=== PATIENT | male | born 1955 | race Caucasian/White ===

== ENCOUNTER 2025-01-14 15:21 | Outpatient (AMB) | payer MEDICARE, OTHER, SELFPAY ==
--- NOTE | 2025-01-14 15:31 | AM.OFFWIN_ITS ---
Intake Vital Signs 01/14/25 15:34 Height 6 ft 3.5 in Weight 295 lb BMI 36.4 BP 134/78 Blood Pressure Location Lt brachial Position Sitting Respiration 17 Pulse 76 Pulse Source Pulse Oximeter Temp 97.9 F Temp Source Oral Pulse Oximetry (%) 96 Oxygen Delivery Method Room Air Intake Visit Reasons: EP Weakness, dizziness Intake Note: Pt is here today for a walk in visit. Pt c/o weakness and out of balance. Allergies No Known Allergies Allergy (Unverified 01/14/25 15:32) HPI HPI Comments History of Present Illness Details History of Present Illness - The patient is a 69-year-old male pres enting with weakness and lightheadedness. - The weakness began a few days ago and has persisted, though it has not been debilitating. - He occasionally experiences lightheade dness and some dizziness. - He has a history of anxiety, managed w ith lorazepam. - He was told that if he had chest pains to take his lorazepam which resolves the pain. - The patient has migraines treated with verapamil. - No history of anemia or dietary change s reported. - He denies recent chest pain, body ache s, or cold symptoms. - Blood work is planned to evaluate thyr oid function and other potential issues from his PCP. - He denies bruising or melena or rectal bleeding. Physical Exam General: Cooperative, healthy appearing, comfortable, no acute distress and well developed Orientation: Patient oriented x3 Limitations: No limitations Head: Normal to inspection Ears: Hearing grossly normal bilaterally Nose: Normal external nose present Face and sinus: Normal facial exam Eyes: Appearance normal, both eyes and all related structures. PERRLA, EOMI. No nystagmus noted. Neck: Normal visual inspection and Yes full ROM. No carotid bruits noted. No thyromegaly. Respiratory: Normal respiratory effort and able to speak in complete sentences. Clear to auscultation bilaterally. No w/r/r noted. Cardiovascular: Regular rate and rhythm. Normal S1 and S2. No m/r/g noted. GI: Normal to inspection. Soft to palpation and nontender, no guarding or rebound tenderness. Skin: No rashes or lesions noted. Neuro: Patient oriented x3. CN II-XII intact. Extremities: Normal to inspection. No edema noted. No calf tenderness noted. Patient was informed and verbally consented to the use of an ambient scribe for clinic note documentation during this visit Review of Systems Const All systems reviewed & are unremarkable except as noted in HPI and below Physical Exam Vital Signs: Last Vital Signs Temp 97.9 F 01/14/25 15:34 Pulse 76 01/14/25 15:34 Resp 17 01/14/25 15:34 BP 134/78 01/14/25 15:34 Pulse Ox 96 01/14/25 15:34 Oxygen Delivery Method Room Air 01/14/25 15:34 BMI result Body Mass Index 36.4 Office Procedures EKG 69501-[id number], Complete Results AMB Hemoglobin A1c AMB Hemoglobin A1c 5.9 % Last Edit by Natalia Echevarria CMA on 01/14/25 16:35 Results Reviewed Results Reviewed: Laboratory Last Values Hgb A1c (Clinic) 5.9 % (4.0-6.0) 01/14/25 16:32 Assessment & Plan Assessment & Plan (1) Weakness with dizziness: Code(s): R53.1 - Weakness; R42 - Dizziness and giddiness Plan Most likely hypothyroidism vs hypoglycemia vs electrolyte abnormality vs Anxiety vs cardiac? EKG in the office with no ST elevations noted HbA1c was 5.9 plan - Continue lorazepam as needed for anxiety management. - Re-evaluate if symptoms do not improve. - Perform blood tests as ordered by his PCP - take regular medications - Advised him to go to the ER if he continues to be weak, has chest pain, syncope, etc Orders: Orders AMB Hemoglobin A1c Today Z13.9 - Encounter for screening, unspecified AMB EKG-In Office Today Z13.6 - Encounter for screening for cardiovascular disorders Coding Level of Care Code Est Pt Level 4 (93930) Diagnoses Weakness with dizziness R53.1; R42 CPT Codes EKG - CPT: 38442-Ohnuzkzoafsellqzl, Complete ([id number])
[2025-01-14 15:34] VITALS: BP 134/78; PULSE 76; RESP 17; TEMP 36.6; O2SAT 96; BMI 36.4
--- OUTSIDE RECORDS SUMMARY | 2025-01-14 18:15 | XMS_ITS | Clinical Summary ---
Author Organization [facility] Address [address] [facility] [address] [place] [id number] Phone Care Team Providers Care Brake Operator Name Role Phone Geraldo To MD Primary Care Provider + Allergies No known active allergies Medications No known medications Active Problems No known active problems Social History Tobacco Use Types Packs/Day Years Used Date Smoking Tobacco: Never Assessed Education Answer Date Recorded Are you interested in more education? Not on ariel e 07/07/2022 Are you concerned about learning? Not on file 07/07/2022 No 07/07/2022 No 07/07/2022 Digital Access Answer Date Recorded No 08/05/2022 No 08/05/2022 Reliable internet access at home? Not on file 08/05/2022 Device with a working camera? Not on file Sex and Gender Information Value Date Recorded Sex Assigned at Not on file Legal Sex Male 4:14 PM EDT Gender Identity Not on file Sexual Orientation Not on file Last Filed Vital Signs Vital Sign Reading Time Taken Comments Blood Pressure - - Pulse - - Temperature - - Respiratory Rate - - Oxygen Saturation - - Inhaled Oxygen Concentration - - Weight 133.8 kg (295 lb) 01/22/2022 10:33 AM EST Height 190.5 cm (6' 3 ) 01/22/2022 10:33 AM EST Body Mass Index 36.87 01/22/2022 10:33 AM EST Plan of Treatment Health Maintenance Due Date Last Done Comments LIPID PANEL 1956 DEPRESSION SCREENING 1968 SMOKING Hx and SMOKELESS TOBACCO SCREENING 1969 HEPATITIS C SCREENING 1974 SCREENING FOR DIABETES 1991 COLOGUARD 2001 COLONOSCOPY 2001 COLORECTAL CANCER SCREENING 2001 FIT TEST 2001 FOBT 2001 SIGMOIDOSCOPY 2001 VIRTUAL COLONOSCOPY 2001 PNEUMOCOCCAL VACCINES (50+ years) (1 of 1 - PCV) 2006 ZOSTER VACCINES (1 of 2) 2006 INFLUENZA VACCINE (#1) 2024 , 01/02/2020, 11/29/2018, Additional history exists COVID-19 VACCINE (2 - season) 2024 01/14/2021 Adult Td,Tdap Booster 01/05/2029 01/05/2019, 007 RSV VACCINE (1 - 1-dose 75+ series) 2031 HEPATITIS A VACCINES Aged Out No long er eligible based on patient's age to complete this topic HIB VACCINES Aged Out No longer eligi ble based on patient's age to complete this topic MENINGOCOCCAL VACCINES (ACWY) Aged Out No longer eligible based on patient's age to complete this topic MENINGOCOCCAL VACCINES (B) Aged Out N o longer eligible based on patient's age to complete this topic Medical Devices Not on file [place] [address] [place] [address] [place], [place] [address] [place] [address] [place] [place] [address] [place] [address] Care Teams Brake Operator Relationship Specialty Start Date End Date Geraldo To MD [address] [place] [id number] PCP - General Internal Medicine 09/20/20 Additional Source Comments The information contained in this document represents components of the legal health record. It is not the complete legal health record.[facility]
== END 2025-01-14 16:50 | disposition home or self-care (01) ==
PROVIDERS: PCP Internal Medicine; Visit Provider Physician Assistant Medical
DX: R53.1 Weakness (principal); R42 Dizziness and giddiness; Z13.9 Encounter for screening, unspecified

== ENCOUNTER → 2025-01-14 15:21 | Outpatient (BNVA) | payer OTHER, SELFPAY | PROVIDERS: PCP Internal Medicine; Visit Provider Physician Assistant Medical | DX: R53.1 Weakness (principal); R42 Dizziness and giddiness; F41.9 Anxiety disorder, unspecified; G43.909 Migraine, unspecified, not intractable, without status migrainosus; Z13.6 Encounter for screening for cardiovascular disorders; Z13.1 Encounter for screening for diabetes mellitus; Z79.899 Other long term (current) drug therapy | CPT/HCPCS: 83036; 93005; 99212 ==

== ENCOUNTER 2025-01-16 18:35 | Emergency (ER) | payer OTHER, SELFPAY ==
--- NOTE | ~2025-01-16 | XR_ITS ---
CLINICAL HISTORY: weakness 2 view chest x-ray Comparison: None provided Findings: No consolidation or effusion. Normal size heart. No acute fracture. IMPRESSION: 1. No acute findings. This document has been electronically signed by: Anu Jackson MD on 01/16/2025 19:52:25
--- NOTE | ~2025-01-16 | US_ITS ---
CLINICAL HISTORY: leg pain, swelling Venous duplex ultrasound right lower extremity Comparison: None provided Findings: The visualized deep veins are fully compressible with normal Doppler color flow and spectral tracings. Varicose veins of the left calf. Right groin lymph node measuring 0.6 cm short axis. IMPRESSION: 1. Negative for right lower extremity deep vein thrombosis. This document has been electronically signed by: Anu Jackson MD on 01/16/2025 19:55:12
--- NOTE | 2025-01-16 18:44 | ED_ITS ---
HPI - General Adult General Chief complaint: Extremity Problem Stated complaint: lwr right leg swollen Time Seen by Provider: 01/16/25 22:29 Source: patient Mode of arrival: ambulatory Limitations: no limitations History of Present Illness ED Provider: Brenden FLOR HPI narrative: The patient is a 69-year-old male presenting to the ED reporting last week he was experiencing generalized fatigue described as generalized malaise with bilateral lower extremity weakness. The patient denies any associated fever/chills, nausea, vomiting, chest pain, shortness of breath, fall, unilateral symptoms, headache, recent sick contacts, or recent trauma. The patient reports he was seen at urgent care for his symptoms, reports EKG and laboratory evaluation was reassuring. Patient reports he was recently seen by his PCP and scheduled for repeat labs this coming Saturday. Urgent Care advised him to monitor his symptoms and complete PCP labs on Saturday. Patient reports a history of anxiety due to caring for a special needs child, for which he is prescribed Ativan. The patient reports he wondered if his symptoms related to anxiety, reports after taking his Ativan the symptoms appeared to mildly improved. The patient reports tonight however he noted asymmetric swelling of the right lower extremity compared to the left, without associated pain or tenderness. Patient presenting to the ED for evaluation of possible blood clot. Related Data Home Medications ?Medication ?Instructions ?Recorded ?Confirmed allopurinol 300 mg tablet 300 mg PO DAILY 01/14/25 aspirin 81 mg tablet 81 mg PO DAILY 01/14/25 atorvastatin 10 mg tablet 10 mg PO BEDTIME 01/14/25 citalopram 10 mg tablet 20 mg PO QAM 01/14/25 levothyroxine 150 mcg tablet 150 mcg PO DAILY 01/14/25 lorazepam 0.5 mg tablet 0.5 mg PO Q6H PRN anxiety verapamil 120 mg tablet,extended 40 mg PO DAILY release Allergies Allergy/AdvReac Type Severity Reaction Status Date / Time No Known Allergies Allergy Verified 01/16/25 18:48 Review of Systems 2 Review of Systems: Yes all other systems are reviewed and are negative [facility] Social History Social History Unable to assess alcohol history related to: Unknown Smoked in Last 30 Days: No Use of substances other than those prescribed or required for medical reasons: No Any prior treatment program specific to substance use: No Advance Directives: No Advance Directives Information Provided: Yes Physical Exam ED Vital Signs: Vital Signs - 24 hr 01/16/25 18:45 01/16/25 22:07 01/16/25 23:44 Temperature 98.0 F 98.4 F Pulse Rate 76 74 74 Respiratory Rate 18 18 18 Blood Pressure 194/82 H 149/67 H 149/67 H Pulse Oximetry 96 95 95 Oxygen Delivery Method Room Air Room Air Room Air BMI result Body Mass Index 36.6 CONSTITUTIONAL: The patient appears non-toxic, well nourished and in no acute distress. Vital signs as documented. HEAD: Atraumatic, normocephalic. EYES: EOMs grossly intact, pupils equal, conjunctiva clear, no exudate. ENT: Nares patent, no discharge. Airway patent, no audible stridor, visible mucosa is pink and moist without noted lesions. NECK: Trachea is midline, no obvious masses or gross abnormalities. CHEST: Symmetric movement, normal appearance. LUNGS: LS present and CTAB, no w/r/r. Non-labored work of breathing. CARDIAC: Regular Rhythm, S1/S2 appreciated, no murmurs, rubs or gallops. ABDOMEN: Abdomen soft and non-tender x4 quadrants, no palpable masses or organomegaly. : Deferred. EXTREMITIES: Right lower extremity demonstrates 1+ pitting edema without associated calf tenderness, impaired range of motion, or pain with weight- bearing, distal CSM intact, 2+ DP/PT pulses bilaterally. There are chronic skin color changes which patient reports are secondary to a significant infection 4-5 years ago which nearly required skin grafting. Skin color changes are reportedly unchanged, no overlying erythema, no open wounds. Normal tone, moves all other extremities spontaneously without reported pain. No obvious acute injury or deformity noted. NEURO: Alert and oriented x3, CN II-XII appear grossly intact. Cerebellar Functioning grossly intact. No obvious sensory or motor deficits. Speech clear and appropriate. PSYCH: normal affect, appropriate eye contact, fluid speech, with appropriate response to questioning. No reported suicidality or homicidality. SKIN: Warm, dry, color appropriate, normal turgor. No rashes noted. Course Course Course Narrative: Medical screening exam performed. Please refer to detailed history, exam, evaluation, and management by primary provider. Feeling unwell, weakness. Today noticed right lower extremity swollen at the calf. No pain. No history of DVT. No chest pain or shortness of breath. No trauma. Check labs, ultrasound. JS Medical Decision Making Medical Decision Making [facility] Narrative: 10:57 PM 01/16/2025 (Linda FLOR): The patient is a 69-year-old male presenting to the ED reporting last week he was experiencing generalized fatigue described as generalized malaise with bilateral lower extremity weakness. The patient denies any associated fever/chills, nausea, vomiting, chest pain, shortness of breath, fall, unilateral symptoms, headache, recent sick contacts, or recent trauma. The patient reports he was seen at urgent care for his symptoms, reports EKG and laboratory evaluation was reassuring. Patient reports he was recently seen by his PCP and scheduled for repeat labs this coming Saturday. Urgent Care advised him to monitor his symptoms and complete PCP labs on Saturday. Patient reports a history of anxiety due to caring for a special needs child, for which he is prescribed Ativan. The patient reports he wondered if his symptoms related to anxiety, reports after taking his Ativan the symptoms appeared to mildly improved. The patient reports tonight however he noted asymmetric swelling of the right lower extremity compared to the left, without associated pain or tenderness. Patient presenting to the ED for evaluation of possible blood clot. The patient in the ED is well-appearing, in no acute distress, right lower extremity does demonstrate 1+ pitting edema without associated calf tenderness, impaired range of motion, pain with weight-bearing, or other acute finding. Distal CSM intact, 2+ DP/PT pulses bilaterally. The patient is right lower extremity demonstrates chronic skin color changes which patient reports are secondary to a significant infection 4-5 years ago which nearly required skin grafting. Patient reports though skin color changes are unchanged, there was no overlying erythema. No open wounds. The patient's laboratory evaluation shows no leukocytosis, significant anemia, electrolyte abnormality, or TEE. The patient's urinalysis is unremarkable. Viral swabs are negative for influenza and COVID. The patient was evaluated with chest x-ray which shows no focal consolidation, EKG is nonischemic, troponin is negative. Patient's BNP is normal. The exact cause of the patient's unilateral lower extremity swelling is not entirely clear, however there was no evidence of an acute emergent process causing the symptoms. At this time the patient was recommended to keep the leg elevated above the level of his heart, and follow up with his PCP ordered labs on Saturday. Patient was also instructed to contact his PCP Saturday to inform him of his ED visit, reassuring workup, and to request appointment for re-evaluation and consideration of echocardiogram or stress test as the patient reports he has not undergone cardiac testing in approximately 10 years. Admission/Observation Consideration of admission/observation: Escalation of care including admission/observation considered Lab Data MDM Lab Attestation statement: I reviewed the patient's lab results. 01/16/25 20:32 01/16/25 20:32 Labs: Lab Results 01/16/25 01/16/25 Range/Units 20:32 20:43 WBC 9.8 (4.8-10.8) X10*3/uL RBC 4.65 (4.60-5.80) X10*6/uL Hgb 14.3 (14.0-18.0) g/dl Hct 40.7 L (42.0-52.0) % MCV 87.5 (80.0-98.0) fL MCH 30.8 (27.0-33.0) pg MCHC 35.1 (31.0-36.0) g/dl RDW 13.2 (11.0-16.0) % Plt Count 163 (160-400) X10*3/uL MPV 8.9 L (9.4-12.4) fL Immature Gran % (Auto) 0.5 H (0.0-0.4) % Neut % (Auto) 68.1 (45-73) % Lymph % (Auto) 23.0 (20-40) % Cloud % (Auto) 6.3 (2-11) % Eos % (Auto) 1.4 (0-4) % Baso % (Auto) 0.7 (0-2) % Lymph # (Auto) 2.3 (1.2-4.9) X10*3/uL Cloud # (Auto) 0.6 (0.1-1.2) X10*3/uL Eos # (Auto) 0.1 (0.0-0.4) X10*3/uL Baso # (Auto) 0.1 (0.0-0.2) X10*3/uL Abs Immat Gran (auto) 0.05 H (0.00-0.03) X10*3/uL Absolute Neuts (auto) 6.7 (2.0-8.3) x10*3/uL Absolute Nucleated RBC 0.000 (0.0-0.012) X10*3/uL Nucleated RBC % (auto) 0.0 (0.0-0.2) /100WBC PT 13.0 (11.2-13.5) SEC INR 1.1 (0.9-1.1) Sodium 142 (135-145) mmol/L Potassium 3.9 (3.3-5.1) mmol/L Chloride 107 (96-108) mmol/L Carbon Dioxide 24 (22-29) mmol/L Anion Gap 15 (12-20) BUN 15 (9-16) mg/dL Creatinine 0.86 (0.5-1.4) mg/dL Estim Creat Clear Calc 120.7 Estimated GFR > 60 Random Glucose 117 H (60-115) mg/dL Calcium 9.3 (8.4-10.2) mg/dL Troponin I High Sens 3.2 (<3.5-35.0) ng/L NT-Pro-B Natriuret Pep 49.0 (<300) pg/mL Urine Color Yellow Urine Appearance Clear Urine pH 5.5 (5.0-9.0) Ur Specific [place] >= 1.030 H (1.005-1.025) Urine Protein Negative (Neg-Trace) mg/dL Urine Glucose (UA) Negative (Negative) mg/dL Urine Ketones Trace (Negative) mg/dL Urine Blood Negative (Negative) Urine Nitrite Negative (Negative) Ur Leukocyte Esterase Negative (Negative) COVID-19 (MARTINEZ) Negative (Negative) COVID-19 Clin Com See Note Influenza Type A (VANE) Negative (Negative) Influenza Type B (VANE) Negative (Negative) Influenza A & B Note See Note Independent Interpretation I performed an independent interpretation of an: EKG (EKG demonstrates normal sinus rhythm with a rate of 71, no evidence of acute ischemia, no ST elevation, no ectopy. QTC 417. Compared to previous on 12/27/2015 there are no significant morphology changes. ) Radiology Impression Discussion of test interpretation with radiology: I have reviewed the radiologist's reading. Radiologist Impression: 2 view chest x-ray Comparison: None provided Findings: No consolidation or effusion. Normal size heart. No acute fracture. IMPRESSION: 1. No acute findings. This document has been electronically signed by: Anu Jackson MD on 01/16/2025 19:52:25 Venous duplex ultrasound right lower extremity Comparison: None provided Findings: The visualized deep veins are fully compressible with normal Doppler color flow and spectral tracings. Varicose veins of the left calf. Right groin lymph node measuring 0.6 cm short axis. IMPRESSION: 1. Negative for right lower extremity deep vein thrombosis. This document has been electronically signed by: Anu Jackson MD on 01/16/2025 19:55:12 External Record Review External record reviewed: Outpatient record and Prior outpatient labs Discharge Plan Discharge Clinical Impression: Lower extremity edema Patient Disposition: Home, Self-Care Instructions: Leg Edema (ED), Edema (ED) Additional Instructions: Thank you for choosing [facility]'s Emergency Department for your care today. Thankfully your laboratory evaluation, EKG, chest x-ray, DVT ultrasound, urinalysis, vital signs, and exam today are all reassuring. The exact cause of your right lower extremity swelling is not entirely clear, however at this time there does not appear to be an emergent process causing the symptoms. At this time there is no indication for admission to the hospital or continued ED observation, and it is safe to discharge you home. Your DVT ultrasound was negative for a blood clot, there was no evidence of fluid retention secondary to your kidney or heart function, there was no evidence of infection, anemia, electrolyte abnormality, renal dysfunction, heart attack, congestive heart failure, pneumonia, or other emergent abnormalities identified. Your flu swabs were negative for COVID and influenza. Please elevate your leg above the level of your heart throughout the remainder of the weekend. Please contact your primary care provider on Saturday to report your symptoms and results of your ED visit so they can request medical records from today's visit. Please complete the lab work ordered for you by your PCP on Saturday, and please schedule a follow up appointment with your PCP for re- evaluation and to discuss indications for additional testing such as echocardiogram or stress test. Please return to the emergency department if you develop a severe or sudden change in your symptoms, chest pain, sensation of fainting, a fever over 100.4 that does not improve with Tylenol or Ibuprofen, recurrent vomiting, or any other new or worsening symptoms or concerns. Prescriptions: No Action verapamil 120 mg tablet extended release 40 mg PO DAILY atorvastatin 10 mg tablet 10 mg PO BEDTIME citalopram 10 mg tablet 20 mg PO QAM lorazepam 0.5 mg tablet 0.5 mg PO Q6H PRN (Reason: anxiety) levothyroxine 150 mcg tablet 150 mcg PO DAILY allopurinol 300 mg tablet 300 mg PO DAILY aspirin 81 mg tablet 81 mg PO DAILY Referrals: Geraldo To III, MD [Primary Care Provider, Medical] Clinical Impression: Lower extremity edema Interventions: ED Discharge Assessment Last Done: 01/16/25 23:44 Discharge Date/Time: 01/16/25 23:46 Print Language: Uruguayan
[2025-01-16 18:45] VITALS: BP 194/82; PULSE 76; RESP 18; TEMP 36.7; O2SAT 96; BMI 36.6
--- NOTE | 2025-01-16 18:51 | ECG_ITS ---
Test Reason : WEAKNES Blood Pressure : */* mmHG Vent. Rate : 71 BPM Atrial Rate : 71 BPM P-R Int : 208 ms QRS Dur : 84 ms QT Int : 384 ms P-R-T Axes : 57 -17 29 degrees QTcB Int : 417 ms Normal sinus rhythm Minimal voltage criteria for LVH, may be normal variant ( R in aVL ) Borderline ECG When compared with ECG of 27-Dec-2015 06:56, Questionable change in QRS axis Referred By: Estuardo Jean Baptiste Electronically Signed By: Abran Ram
--- OUTSIDE RECORDS SUMMARY | 2025-01-16 20:38 | XMS_ITS | Clinical Summary ---
Author Organization [facility] [address] [place] [address] [place] [phone] Phone Care Team Providers Care Brand Planner Name Role Phone Geraldo To MD Primary Care Provider [phone] Allergies Active Allergy Reactions Criticality Noted Date Comments Simvastatin 11/13/2016 Muscle Aches Medications diclofenac (VOLTAREN) 1 % topical gel Apply 4 g topically 4 (four) times a day. 4 Active SUMAtriptan (IMITREX) 50 mg tablet May repeat dose once after 2 hours, if needed. 9 Active BABY ASPIRIN ORAL Take by mouth daily. Active verapamil SR (CALAN-SR) 120 mg CR tablet Take 1 tablet (120 mg total) by mouth 1 (one) time each day. 5 Active atorvastatin (LIPITOR) 10 mg tablet Take 1 tablet (10 mg total) by mouth at bedtime. 90 tablet 1 5 Active levothyroxine (SYNTHROID, LEVOTHROID) 150 mcg tablet Take 1 tablet (150 mcg total) by mouth 1 (one) time each day. 90 tablet 2 5 Active allopurinoL (ZYLOPRIM) 300 mg tablet Take 1 tablet (300 mg total) by mouth 1 (one) time each day. 90 tablet 2 5 Active citalopram (CeleXA) 10 mg tablet TAKE 1 TABLET BY MOUTH EVERY DAY IN THE MORNING 90 tablet 5 Active LORazepam (ATIVAN) 0.5 mg tablet Take 1 tablet (0.5 mg total) by mouth every 6 (six) hours if needed for anxiety. Max Daily Amount: 2 mg 30 tablet 5 03/29/19 26 Active LORazepam (ATIVAN) 0.5 mg tablet Take 1 tablet (0.5 mg total) by mouth every 6 (six) hours if needed for anxiety. Max Daily Amount: 2 mg 30 tablet 5 12/30/19 25 Discontinu ed(Reorder ) Active Problems Problem Noted Date Diagnosed Date Elevated fasting glucose 06/12/2022 Actinic keratoses 02/07/2021 Overview (02/20/2024): Follows with [facility] Migraine 11/02/2019 Elevated blood pressure reading 02/26/2018 Mixed hyperlipidemia 09/15/2014 CAD (coronary artery disease) 02/15/2010 Overview (02/20/2024): 50% circumflex lesion, 30% right coronary lesion, coronary arteriography, 02/07/2010. Gout 11/22/2009 Hypothyroidism 05/18/2009 Anxiety 04/27/2009 Esophageal reflux 02/25/2006 Encounters Date Type Department Care Team Description 12/29/2024 1:00 PM EDT Office Visit Adult Medicine [address] [phone] Rimma Rangel PA Pure hypercholesterolemia (Primary Dx); Hypothyroidism, unspecified type; Prediabetes; Anxiety; Gout, unspecified cause, unspecified chronicity, unspecified site; Elevated blood pressure reading from Last 3 Months Immunizations Immunization Administration Dates Next Due Influenza Quadravalent, 0.5m l (Fluad) 65yo and older 12/29/2022 Influenza Quadravalent, MDCK , 0.5ml, preservative free (Flucelvax) 6mo and older 12/29/2021,11/29/2018 Influenza Quadravalent, MDCK , 0.5ml, with preservative (Flucelvax) 6mo and older 11/13/2016 Influenza Quadrivalent, 0.5m l, preservative free (Fluarix; FluLaval; Fluzone) ages 6mo and older (Afluria) 3yo and older 12/17/2020,01/02/2020 Influenza trivalent, 0.5mL ( Fluad) 65yo and older 01/02/2025,01/04/2024 Influenza trivalent, 0.5mL, preservative free (Fluarix; FluLaval; Fluzone) ages 6mo and older (Afluria) 3 years and older 01/02/2020,03/29/2016,03/18/2015,2014,11/18/2008 Influenza trivalent, with preservative (Fluzone; Afluria) 6mo and older 03/29/2016,03/18/2015,03/26/2014,2008 Pfizer (age 5-11) Bivalent, COVID-19 02/09/2022 Pneumococcal conjugate 20 va lent (Prevnar 20, PCV 20) 2mo and older 06/13/2023 Td Tetanus diptheria (Tdvax) 7yo and older 01/05/2019 Tdap Tetanus diptheria acell ular pertussis (Boostrix; Adacel) 7yo and older 01/21/2007 Zoster recombinant (Shingrix ) 19yo and older 10/19/2024,07/11/2024 Surgical History Surgery Date Site/Laterality Comments CHOLECYSTECTOMY 2003 PROCEDURE: HISTORICAL CHOLECYSTECTOMY; COMMENT: biliary dyskinesia MULTIPLE TOOTH EXTRACTIONS 03/22/2014 PROCEDURE: HISTORICAL DENTAL EXTRACTION; COMMENT: Dr. Parra COLONOSCOPY 08/10/2010 PROCEDURE: HISTORICAL COLONOSCOPY; COMMENT: No polyps COLONOSCOPY 12/25/2006 PROCEDURE: HISTORICAL COLONOSCOPY; COMMENT: 2 cm sig cn polyp: tubular adenoma COLONOSCOPY 05/17/2020 PROCEDURE: HISTORICAL COLONOSCOPY; COMMENT: 3 mm polyps x 2: Tubular adenoma x2. Medical History Medical History Date Comments Gout, unspecified DX:Gout, unspe cified Hand fracture, right 1971 DX:Hand fra cture, right; COMMENT: right hand Esophageal reflux 02/25/2006 DX:Esophageal reflux Trigger finger (acquired) 02/25/2006 DX:Tri gger finger (acquired) Benign neoplasm of colon 12/25/2006 DX:Gabe gn neoplasm of colon; COMMENT: 2-cm pedunculated tub adenoma removed from the sigmoid colon at screening colonoscopy [facility], 12/25/2006. Gout 11/22/2009 DX:Gout Eczema 01/03/2010 DX:Eczema Family History Medical History Relation Name Comments Other: CABG Brother 1 Heart attack Brother 2 age 44 Heart attack Brother 3 CABG times 3 Diabetes Daughter type 1, autisti c Other: suddenly age 67 Father ? cardaic arrest unclear Arthritis Mother thought to be g ojut Hypertension Mother Colon cancer Neg Hx Relation Name Status Comments Brother 1 Brother 2 Brother 3 Daughter Father Mother Alive Social History Tobacco Use Types Packs/Day Years Used Date Smoking Tobacco: Never Smokeless Tobacco: Never Tobacco Cessation:Counseling Given: Not Answered Alcohol Use Standard Drinks/Week Comments Yes 0 (1 standard drink = 0.6 oz pur e alcohol) Sex and Gender Information Value Date Recorded Sex Assigned at Not on file Legal Sex Male 1:59 AM EST Gender Identity Not on file Sexual Orientation Not on file Obstetrics History Last Filed Vital Signs Vital Sign Reading Time Taken Comments Blood Pressure 132/62 12/29/2024 1:52 PM EDT Pulse 63 12/29/2024 12:53 PM EDT Temperature 36.4 C (97.6 F) 12/29/2024 12:53 PM EDT Respiratory Rate 16 12/29/2024 12:53 PM EDT Oxygen Saturation 97% 04/07/2024 9:48 AM EST Inhaled Oxygen Concentration - - Weight 135 kg (297 lb) 12/29/2024 12:53 PM EDT Height 191.8 cm (6' 3.5 ) 12/29/2024 12:53 PM ED T Body Mass Index 36.63 12/29/2024 12:53 PM EDT Plan of Treatment Upcoming Encounters Date Type Department Care Team (Late st Contact Info) Description 07/09/2025 1:00 PM EDT Office Visit Adult Medicine [address] [phone] Geraldo To MD [address] [place] [address] Health Maintenance Due Date Last Done Comments Colorectal Cancer Screening: Colonoscopy 1955 [place] Risk Assessment 02/17/2022 Social Influencers of Health Screening 02/17/2022 Depression Screening 03/11/2024 Hypertension/CHF/CAD Annual BMP Blood Test 06/25/2025 06/25/2024, 12/16/2023, 12/16/2023 COVID-19 Vaccine (5 - Pfizer risk season) 2025 01/02/2025, 01/04/2024, 12/29/2022, Additional history exists DTaP,Tdap,and Td Vaccines (3 - Td or Tdap) 01/05/2029 01/05/2019, 01/21/2007 Cholesterol Screening (Lipid Panel) 06/25/2029 06/25/2024, 12/16/2023, 12/16/2023 RSV Immunization Adult Patients (1 - 1-dose 75+ series) 2031 Hepatitis C Screening Completed 02/27/2013 Pneumococcal Vaccine: 50+ Years Completed 06/13/2023 Zoster Vaccines Completed 10/19/2024, 07/11/2024 Influenza Vaccine Completed 01/02/2025, , 12/29/2022, Additional history exists HIB Vaccines Aged Out No longer eligi ble based on patient's age to complete this topic HPV Vaccines Aged Out No longer eligi ble based on patient's age to complete this topic Hepatitis A Vaccines Aged Out No long er eligible based on patient's age to complete this topic Hepatitis B Vaccines Aged Out No long er eligible based on patient's age to complete this topic IPV Vaccines Aged Out No longer eligi ble based on patient's age to complete this topic MMR Vaccines Aged Out No longer eligi ble based on patient's age to complete this topic Meningococcal ACWY Vaccine Aged Out N o longer eligible based on patient's age to complete this topic Meningococcal B Vaccine Aged Out No l onger eligible based on patient's age to complete this topic RSV Immunization Patients Under 20 months Aged Out No longer eligible based on patient's age to complete this topic Varicella Vaccines Aged Out No longer eligible based on patient's age to complete this topic Procedures Procedure Name Priority Date/Time Associated Diagnosis Comments COMPREHENSIVE METABOLIC PANEL Routine 06/25/2024 1:39 PM EDT Prediabetes LIPID PANEL WITH REFLEX TO DIRECT LDL Routine 06/25/2024 1:39 PM EDT Pure hypercholesterolemia HM HEPATITIS C SCREENING Routine 02/27/2013 from Last 3 Months or Most Recently Relevant to Health Maintenance Results * Lipid panel with reflex to direct LDL (06/25/2024 1:39 PM EDT) Cholesterol 150 0 - 200 mg/dL LAB CHEMISTRY METHOD 06/25/2024 5:38 PM EDT [facility] Triglycerides 120 0 - 150 mg/dL LAB CHEMISTRY METHOD 06/25/2024 5:38 PM EDT [facility] HDL 49 >=40 mg/dL LAB CHEMISTRY METHOD 06/25/2024 5:38 PM EDT [facility] LDL Calculated 77 0 - 100 mg/dL LAB CHEMISTRY METHOD 06/25/2024 5:38 PM EDT [facility] VLDL Cholesterol David 24 mg/dL LAB CHEMISTRY METHOD 06/25/2024 5:38 PM EDT [facility] Non HDL Chol. (LDL+VLDL) 101 <145 mg/dL LAB CHEMISTRY METHOD 06/25/2024 5:38 PM EDT [facility] Chol/HDL Ratio 3.1 0.0 - 4.4 LAB CHEMISTRY METHOD 06/25/2024 5:38 PM EDT [facility] Blood Venous blood specimen / Unknown Venipuncture / Unknown 06/25/2024 1:39 PM EDT 06/25/2024 1:39 PM EDT us Geraldo To MD LAB BLOOD ORDERABLES Final Resu lt [facility] [address] [place] [address], * Comprehensive metabolic panel (06/25/2024 1:39 PM EDT) Sodium 143 133 - 145 mmol/L LAB CHEMISTRY METHOD 06/25/2024 5:38 PM EDT [facility] Potassium 4.3 3.5 - 5.5 mmol/L LAB CHEMISTRY METHOD 06/25/2024 5:38 PM [facility] Chloride 106 96 - 110 mmol/L LAB CHEMISTRY METHOD 06/25/2024 5:38 PM [facility] CO2 29 21 - 32 mmol/L LAB CHEMISTRY METHOD 06/25/2024 5:38 PM [facility] Anion Gap 8 3 - 11 LAB CHEMISTRY METHOD 06/25/2024 5:38 PM [facility] Glucose 88 70 - 100 mg/dL LAB CHEMISTRY METHOD 06/25/2024 5:38 PM [facility] BUN 10 5 - 25 mg/dL LAB CHEMISTRY METHOD 06/25/2024 5:38 PM [facility] Creatinine 0.95 0.70 - 1.30 mg/dL LAB CHEMISTRY METHOD 06/25/2024 5:38 PM [facility] eGFR 87 >=60 mL/min/1. 73m2 LAB CHEMISTRY METHOD 06/25/2024 5:38 PM [facility] Comment:Calculation based on the Chronic Kidney Disease Epidemiology Collaboration (CKD-EPI) equation refit without adjustment for race. BUN/Creatinine Ratio 10.5 LAB CHEMISTRY METHOD 06/25/2024 5:38 PM [facility] Calcium 9.4 8.5 - 10.5 mg/dL LAB CHEMISTRY METHOD 06/25/2024 5:38 PM [facility] AST (SGOT) 21 10 - 42 unit/L LAB CHEMISTRY METHOD 06/25/2024 5:38 PM [facility] ALT (SGPT) 22 10 - 60 unit/L LAB CHEMISTRY METHOD 06/25/2024 5:38 PM [facility] Alkaline Phosphatase 81 42 - 121 unit/L LAB CHEMISTRY METHOD 06/25/2024 5:38 PM [facility] Total Protein 7.4 6.0 - 8.0 g/dL LAB CHEMISTRY METHOD 06/25/2024 5:38 PM EDT [facility] Albumin 4.1 3.2 - 5.0 g/dL LAB CHEMISTRY METHOD 06/25/2024 5:38 PM EDT [facility] Total Bilirubin 0.7 0.0 - 1.4 mg/dL LAB CHEMISTRY METHOD 06/25/2024 5:38 PM EDT [facility] Blood Venous blood specimen / Unknown Venipuncture / Unknown 06/25/2024 1:39 PM EDT 06/25/2024 1:39 PM EDT Geraldo To MD LAB BLOOD ORDERABLES Final Resu lt [facility] [address] [place] [address], * Hepatitis C Screening (02/27/2013) Pathologist [facility] Hepatitis C Screening abstracted Historical Provider HEALTH MAINTENANCE Final Result from Last 3 Months or Most Recently Relevant to Health Maintenance Insurance MEDICARE [facility] Care Teams Brand Planner Relationship Specialty Start Date End Date Geraldo To MD [address] [place] [phone] PCP - General Internal Medicine 09/10/19
--- OUTSIDE RECORDS SUMMARY | 2025-01-16 20:38 | XMS_ITS | Clinical Summary ---
Author Organization [facility] Address [address] [facility] [address] [place] [phone] Phone Care Team Providers Care Hooker Off Name Role Phone Geraldo To MD Primary [...] topic Medical Devices Not on file [place] [address] [place] [address] [place], [place] [address] [address] [place] [place] [address] [place] [address] Care Teams Hooker Off Relationship Specialty Start Date End Date Geraldo To MD [address] [place] [phone] PCP - General Internal Medicine 09/20/20 Additional Source Comments The information contained in this document represents components of the legal health record. It is not the complete legal health record.[facility]
[2025-01-16 20:44] LABS: MANUAL DIFF FLAG NO
[2025-01-16 20:45] LABS: Hematocrit 40.7 % (42.0-52.0); Hemoglobin 14.3 g/dl (14.0-18.0); Imm Gran Abs Auto 0.05 X10*3/uL (0.00-0.03); Imm Gran Pct Auto 0.5 % (0.0-0.4); Lymphocytes Absolute Auto 2.3 X10*3/uL (1.2-4.9); Mean Corpuscular HGB Conc 35.1 g/dl (31.0-36.0); Mean Corpuscular Hemoglobin 30.8 pg (27.0-33.0); Mean Corpuscular Volume 87.5 fL (80.0-98.0); NRBC Abs Auto 0.000 X10*3/uL (0.0-0.012); NRBC Pct Auto 0.0 /100WBC (0.0-0.2); Platelet Count 163 X10*3/uL (160-400); Red Blood Count 4.65 X10*6/uL (4.60-5.80); White Blood Count 9.8 X10*3/uL (4.8-10.8)
[2025-01-16 20:51] LABS: INTERNATIONAL NORM RATIO 1.1 (0.9-1.1); Prothrombin Time 13.0 SEC (11.2-13.5)
[2025-01-16 20:59] LABS: Anion Gap 15 (12-20); Blood Urea Nitrogen 15 mg/dL (9-16); Calcium 9.3 mg/dL (8.4-10.2); Carbon Dioxide 24 mmol/L (22-29); Chloride 107 mmol/L (96-108); Creatinine Clr Calc Pharmacy 120.7; Estimated Glomerular Filt Rate > 60; Potassium 3.9 mmol/L (3.3-5.1); Sodium 142 mmol/L (135-145)
[2025-01-16 21:04] LABS: Appearance Urine Clear; Glucose Urine UA Negative (Negative); PH 5.5 (5.0-9.0); Specific Gravity - Urine >= 1.030 (1.005-1.025)
[2025-01-16 21:07] LABS: NT Pro B Type Natriuretic Pept 49.0 pg/mL (<300)
[2025-01-16 21:08] LABS: COVID-19 Test Negative (Negative); IDNOW Serial# 55D5AD1C; IDNOW Serial# 58CA691E; Influenza B2 Negative (Negative); Troponin-I High Sensitivity 3.2 ng/L (<3.5-35.0)
[2025-01-16 22:07] VITALS: BP 149/67; PULSE 74; RESP 18; O2SAT 95
[2025-01-16 23:44] VITALS: BP 149/67; PULSE 74; RESP 18; TEMP 36.9; O2SAT 95
== END 2025-01-16 23:46 | disposition home or self-care (01) ==
PROVIDERS: Physician Assistant; Emergency Provider Emergency Medicine; PCP Internal Medicine
DX: R60.0 Localized edema (principal); F41.9 Anxiety disorder, unspecified; Z79.899 Other long term (current) drug therapy
CPT/HCPCS: 36415; 71046; 80048; 81003; 83880; 84484; 85025; 85610; 87502; 87635; 93005; 93971; 99284

== ENCOUNTER → 2025-01-16 18:50 | Outpatient (BNV) | payer MEDICARE, OTHER, SELFPAY | PROVIDERS: PCP Internal Medicine; Visit Provider Student in an Organized Health Care Education/Training Program | DX: M79.604 Pain in right leg (principal); R22.41 Localized swelling, mass and lump, right lower limb; R53.1 Weakness | CPT/HCPCS: 71046; 93971 ==

== ENCOUNTER → 2025-01-16 18:51 | Outpatient (BNV) | payer MEDICARE, OTHER, SELFPAY | PROVIDERS: Emergency Provider Emergency Medicine; PCP Internal Medicine; Visit Provider Internal Medicine Cardiovascular Disease | DX: R53.1 Weakness (principal) | CPT/HCPCS: 93010 ==